=== PATIENT | female | born 1965 | race Two or more races ===

== ENCOUNTER 2024-05-02 11:05 | Emergency (ER) | payer MEDICAID, SELFPAY ==
[2024-05-02 11:41] VITALS: BP 114/76; PULSE 98; RESP 20; TEMP 37.2; O2SAT 96; BMI 49.1
--- NOTE | 2024-05-02 11:48 | XR_ITS ---
Examination: Wrist, left 3 views Technique: Wrist AP, oblique, lateral 3 views Date and time of exam: May 02, 2024 12 noon Indications: Patient fell today with injury to the wrist, wrist pain. Findings: Acute intra-articular fracture distal radial metaphysis, without significant displacement Also fracture ulnar styloid tip Impression: Acute comminuted intra-articular fracture distal radial metaphysis
--- NOTE | 2024-05-02 13:54 | EDNOTE_ITS ---
Upper Extremity Injury RME/HPI General Chief Complaint: Hand/Wrist Problems Stated Complaint: LEFT WRIST PAIN Time Seen by Provider: 05/02/24 11:14 Arrival date/time: 05/02/24 11:05 58-year-old female presents to the emergency department today complains of ground-level fall yesterday patient reports pain to the left wrist since then patient denies any other injuries Limitations: no limitations Related Data Previous Rx's ?Medication ?Instructions ?Recorded hydrocodone 5 mg-acetaminophen 325 1 tab PO BID PRN pa in #10 tabs 05/02/24 mg tablet ibuprofen 800 mg tablet 800 mg PO TID PRN pain #30 t abs 05/02/24 Allergies Allergy/AdvReac Type Severity Reaction Status Date / Time No Known Allergies Allergy Verified 05/02/24 11:08 Review of Systems Review of Systems Systems Reviewed: All systems reviewed, normal except as documented Constitutional Constitutional: Reports system reviewed and no additional complaints, except as documented, Denies fever(s) and Denies headache(s) Eyes Eyes: Reports system reviewed and no additional complaints, except as documented and Denies blurry vision ENT Ears, Nose, Mouth, and Throat: Reports system reviewed and no additional complaints, except as documented, Denies headache(s), Denies nasal congestion and Denies nasal discharge Cardiovascular Cardiovascular: Reports system reviewed and no additional complaints, except as documented, Denies chest pain and Denies dyspnea Respiratory Respiratory: Reports system reviewed and no additional complaints, except as documented, Denies chest congestion, Denies cough and Denies dyspnea Gastrointestinal Gastrointestinal: Reports system reviewed and no additional complaints, except as documented and Denies abdominal pain Musculoskeletal Musculoskeletal: Reports system reviewed and no additional complaints, except as documented, Reports arthralgias, Denies deformity, Reports joint swelling, Denies numbness, Reports stiffness and Denies tingling Integumentary/Breasts Skin/Breast: Reports system reviewed and no additional complaints, except as documented and Denies rash Neurologic Neurologic: Reports system reviewed and no additional complaints, except as documented, Reports as per HPI, Denies headache(s), Denies numbness and Denies tingling Past Medical History Social History SMOKING STATUS: Never smoker ED Exam General Limitations: Present no limitations General appearance: Present alert and in no apparent distress Head Head exam: Present atraumatic, normocephalic and normal inspection Eye Eye exam: Present normal appearance, PERRL and EOMI; Absent conjunctival injection ENT ENT exam: Present normal exam, normal oropharynx and mucous membranes moist Neck Neck exam: Present normal inspection, full ROM and trachea midline Chest Chest inspection: Present normal inspection and symmetric chest wall rise Respiratory Respiratory exam: Present normal lung sounds bilaterally Cardiovascular Cardiovascular exam: Present regular rate, normal rhythm and normal heart sounds Abdominal Exam Abdominal exam: Present soft and normal bowel sounds Extremities Exam Extremities exam: Present tenderness, normal capillary refill and joint swelling Back Exam Back exam: Present normal inspection and full ROM Neurological Exam Neurological exam: Present alert, oriented X3 and CN II-XII intact Psychiatric Psychiatric exam: Present normal affect and normal mood Skin Skin exam: Present warm, dry, intact and normal color Course Quality Measures none Orders Category Date Time Status Splint / Immobilizer STAT Care 05/02/24 13:47 Completed XR wrist comp LT min 3V Stat Exams 05/02/24 11:48 Completed HYDROcodone*/APAP 5/325 [[place] 5/325] Med 05/02/24 13:47 Discontinued 1 tab PO X1 ONE Vital Signs Vital signs: Vital Signs Temperature 98.9 F 05/02/24 11:41 Pulse Rate 98 05/02/24 11:41 Respiratory Rate 20 05/02/24 11:41 Blood Pressure 114/76 05/02/24 11:41 Pulse Oximetry (%) 96 05/02/24 11:41 Oxygen Delivery Method Room Air 05/02/24 11:41 O2 saturation 96% room air within normal Procedures -ED Splint Fabrication: Clinician Made Type: Volar Reason for Splint: Optimal Positioning and Pain Management Site condition: Pain Circulation Distal to Splint: Yes Movement Distal to Splint: Yes Senation Distal to Splint: Yes Tolerance: Tolerates Well Extremity Injury MDM Narrative MDM Narrative:: 58-year-old female presents to the emergency department today complains of ground-level fall yesterday patient reports pain to the left wrist since then patient denies any other injuries On exam patient has pain and swelling to the left wrist patient reports pain worse with movement Imaging of the left wrist obtained consistent with fracture Patient discharged home in no distress to follow-up with primary care doctor in the next 24 to 48 hours and for any worsening symptoms to return to the ER immediately Patient data External records reviewed:: [facility] previous records Clinical information provided by:: patient Social determinants that could affect healthcare access:: none Patient has the following chronic illnesses:: None How is presenting disease/condition affected by chronic disease/condition?: no chronic disease Evaluation data The following diagnostics were reviewed and interpreted by me:: radiology exam(s) Lab and/or radiology exams considered but not ordered:: Radiology obtain Interpretation Summary: Reviewed by me Medications / Prescriptions Medications or Prescriptions considered but not ordered:: Given Medication administrations:: Medication Administration History Discontinued Medications Hydrocodone Bitart/Acetaminophen (Hydrocodone/Apap 5/325 Tablet) 1 tab PO X1 ONE Stop: 05/02/24 13:48 Last Admin: 05/02/24 13:55 Dose: 1 tab Documented By: KF Given Consultations Consultation(s) initiated? (list below): No Diagnosis Upper Extremity Injury Differential Diagnosis: sprain and strain of wrist and fracture of wrist Most likely diagnosis given after review of the tests above:: Fracture of wrist Admission Indicated Admission indicated?: not indicated Admission Request Was there a request for admission?: No Disposition Plan Disposition Plan: Discharge Discharge Attestation Discharge Attestation: The patient and all family members were given an opportunity to ask questions and understood the discharge instructions. Discharge instructions specifically effects, indications for sooner follow up or return to the emergency department, and the expected course of current diagnosis. Patient condition: Stable Discharge Plan Plan Patient Disposition: HOME (Self Care) Disposition Comment: Stable Prescriptions/Referrals Prescriptions/Med Rec: New ibuprofen 800 mg tablet 800 mg PO TID PRN (Reason: pain) Qty: 30 0RF hydrocodone-acetaminophen 5-325 mg tablet 1 tab PO BID MDD 10 PRN (Reason: pain) Qty: 10 0RF Problem List Clinical Impression: Fracture of wrist Patient/Caregiver Discharge Instructions Education Materials: ED Fracture, Upper Extremity Additional Instructions: Please follow-up with primary care doctor in order get a referral to orthopedist worsening symptoms or concerns return to the ER immediately for further evaluation Print Language: Georgian Stand Alone Forms: [employer] Info., Patient Portal Info Letter PA/CONTROL PANEL OPERATOR Supervising Physician PA/MICHELLE Supervising Physician: Dr. Meza
[2024-05-02] MEDS: HYDROcodone/APAP 5/325 TABLET 1 TAB PO (13:55)
== END 2024-05-02 14:17 | disposition home or self-care (01) ==
PROVIDERS: Emergency Provider Emergency Medicine; PCP Internal Medicine
DX: S52.572A Other intraarticular fracture of lower end of left radius, initial encounter for closed fracture (principal); W18.30XA Fall on same level, unspecified, initial encounter
CPT/HCPCS: 29126; 73110; 99283; A9270

== ENCOUNTER → 2024-05-23 | Outpatient (CLI) | payer MEDICAID, SELFPAY ==
--- NOTE | 2024-05-23 13:50 | XR_ITS ---
Examination: Wrist, left 3 views Technique: Wrist AP, oblique, lateral 3 views Date and time of exam: May 23, 2024 1412 hours Comparison May 02, 2024 INDICATIONS: History wrist fracture 2 weeks ago. FINDINGS: Subacute intra-articular fracture distal radial metaphysis again noted without major displacement Ulnar styloid tip fracture also identified IMPRESSION: Stable alignment subacute intra-articular fracture distal radial metaphysis
--- NOTE | 2024-05-23 13:50 | XR_ITS ---
Examination: Hand, left 3 views Technique: Hand AP, oblique, lateral 3 views Date and time of exam: May 23, 2024 at 1412 hours INDICATIONS: Patient fell 2 weeks ago with injury to the hand, hand pain. FINDINGS: Prominent osteopenia Subacute fracture distal radial metaphysis without significant displacement Fracture ulnar styloid tip Carpal bones metacarpals and digits appear intact IMPRESSION: Subacute nondisplaced fracture distal radial metaphysis
== END | disposition home or self-care (01) ==
LOC: CDIM 13:35
PROVIDERS: PCP Nurse Practitioner Gerontology; Referring Provider Nurse Practitioner Gerontology; Visit Provider Nurse Practitioner Gerontology
DX: S52.92XA Unspecified fracture of left forearm, initial encounter for closed fracture (principal); W19.XXXA Unspecified fall, initial encounter
CPT/HCPCS: 73110; 73130

== ENCOUNTER 2024-07-28 10:00 | Outpatient (RCR) | payer MEDICAID, SELFPAY ==
--- NOTE | 2024-07-19 09:43 | PTNOTE_ITS ---
PT OP Initial Eval Patient Information Outpatient Physical Therapy Treatment Date: 07/19/24 Visit Reasons: fracture left hand Medical Diagnosis: s52.502a Treatment Dx #1: Left Hand Pain Treatment Dx #2: Left Hand Weakness Start of Care: 07/19/24 Date of Onset: Apr 2024 Smoking Status Smoking Status: Never smoker Initial Assessment Subjective: Pt is a 59 y/o female reports of left hand pain and weakness after she fracture her wrist secondary to a fall in Apr 2024. Pt's xray confirmed distal radius fracture. Pt was in a splint for ~ 6 weeks. Pt still limitation with gripping, lifting, chores, self care, cooking, cleaning, and performing recreational activities. Objective: Left Wrist AROM Flexion: 10 deg Extension: 30 deg Pronation: 90 deg Supination: 45 deg Ulnar Deviation: 20 deg Radial Deviation: 10 deg Left Wrist MMTs: grossly 3-/5 Specification Writer Strength L: 8 lbs R: 40 lbs Assessment: Pt demonstrate left wrist mobility and strength deficits s/p fracture leading to difficulty with ADLs. Pt will benefit from physical therapy to increase ROM, strength, and work on mobility. 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 Operator Goals 1) Increase left wrist AROM WNL in 6 wks to be able to perform chores 2) Decrease wrist pain to 2/10 in 6 wks to be able to perform recreational activities 3) Increase left wrist MMTs grossly to 4/5 in 6 wks to be able to perform self care activities 4) Increase left factory laborer strength to 30 lbs in 6 wks to be able to perform gripping activities 5) Indep with HEP Treatment Plan 1) Manual Therapy 2) Therapeutic Activities 3) Therapeutic Exercises 4) Modalities (ice, heat) Frequency and Duration: 2 x wk for 6 wks Certification Dates: 07/19/24 to 10/19/24 Procedure Charges OP PT Eval Mod Complex 30 minutes: Yes
--- NOTE | 2024-07-26 13:08 | PT.ODAYNRPT ---
PT Outpatient Daily Note OP Daily Note Outpatient Physical Therapy Treatment Date: 07/26/24 Visit Reasons: fracture left hand Subjective: Pt c/o stiffness and weakness. Objective: PLease see flow sheet for there x lsit. Assessment: Pt encouraged to wean off wrist brace and work on light ROM of wrist and digits for HEP, pt agreed. Plan: Continue with POC. Length of Time (minutes) of Treatment: 30 Minutes Procedure Charges Therapeutic Exercise 30 minutes: Yes
--- NOTE | 2024-07-28 10:49 | PT.ODAYNRPT ---
PT Outpatient Daily Note OP Daily Note Outpatient Physical Therapy Treatment Date: 07/28/24 Visit Reasons: fracture left hand Subjective: Pt reports she is trying to wean off the wrist brace. Objective: Please see flow sheet for ther ex list. Assessment: Pt educated on wrist flexion and extension stretch, encouraged to perform for HEP pt agreed. Plan: Assess response to HEP. Length of Time (minutes) of Treatment: 30 Minutes Procedure Charges Therapeutic Exercise 30 minutes: Yes
== END 2024-08-06 23:59 | disposition home or self-care (01) ==
LOC: CPTX 10:00
PROVIDERS: PCP Surgery; Referring Provider Surgery; Visit Provider Surgery
DX: M79.642 Pain in left hand (principal); R53.1 Weakness; S52.502D Unspecified fracture of the lower end of left radius, subsequent encounter for closed fracture with routine healing; W19.XXXD Unspecified fall, subsequent encounter
CPT/HCPCS: 97110; 97162

== ENCOUNTER 2024-09-02 11:00 | Outpatient (RCR) | payer MEDICAID, SELFPAY ==
--- NOTE | 2024-08-11 09:14 | PTNOTE_ITS ---
PT Outpatient Daily Note OP Daily Note Outpatient Physical Therapy Treatment Date: 08/11/24 Visit Reasons: LEFT HAND FRACTURE Subjective: Pt's hand and wrist still hurts. Pt mentioned she can move better lately despite the continued pain. Objective: Please see flow chart for list of ther ex performed Assessment: progressing with wrist AROM. 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
--- NOTE | 2024-08-16 16:19 | PT.ODAYNRPT ---
PT Outpatient Daily Note OP Daily Note Outpatient Physical Therapy Treatment Date: 08/16/24 Visit Reasons: LEFT HAND FRACTURE Subjective: Pt reports L hand is doing a little better, feels making a fist has improved. Objective: Please see flow sheet for ther ex list. Assessment: Interventions given with short rest breaks in between reps pt has poor supervisor finishing room strength and endurance. Plan: Continue with pOC. Length of Time (minutes) of Treatment: 30 Minutes Procedure Charges Therapeutic Exercise 30 minutes: Yes
--- NOTE | 2024-08-23 11:20 | PT.ODAYNRPT ---
PT Outpatient Daily Note OP Daily Note Outpatient Physical Therapy Treatment Date: 08/23/24 Visit Reasons: LEFT HAND FRACTURE Subjective: Pt's hand is much better. Pt still notice hypersensitivity around the scar area. Objective: Please see flow chart for list of ther ex performed Assessment: progressing with hand resistance exercise. Pt was unable to properly perform red digiflex exercise due to resistance and modified back to the yellow one with improved form. Plan: Continue with PT Length of Time (minutes) of Treatment: 30 Minutes Procedure Charges Therapeutic Exercise 30 minutes: Yes
--- NOTE | 2024-09-02 13:26 | PTNOTE_ITS ---
PT Outpatient Daily Note OP Daily Note Outpatient Physical Therapy Treatment Date: 09/02/24 Visit Reasons: LEFT HAND FRACTURE Subjective: Pt notices ball thread machine tender strength is improving but continues to have occasional pain. Objective: Please see flow sheet for ther ex list. GEOFFREY L 40 lbs, R 42 lbs. Assessment: Pt demonstrates imporved ball thread machine tender strenght indicated by above measurements. Plan: Continue progressing per post op protocol. Length of Time (minutes) of Treatment: 30 Minutes Procedure Charges Therapeutic Exercise 30 minutes: Yes
== END 2024-09-05 23:59 | disposition home or self-care (01) ==
LOC: CPTX 11:00
PROVIDERS: PCP Surgery; Referring Provider Surgery; Visit Provider Surgery
DX: M79.642 Pain in left hand (principal); R53.1 Weakness; S52.502D Unspecified fracture of the lower end of left radius, subsequent encounter for closed fracture with routine healing; W19.XXXD Unspecified fall, subsequent encounter
CPT/HCPCS: 97110

== ENCOUNTER 2024-09-29 11:30 | Outpatient (RCR) | payer MEDICAID, SELFPAY ==
--- NOTE | 2024-09-07 11:16 | PTNOTE_ITS ---
PT Outpatient Daily Note OP Daily Note Outpatient Physical Therapy Treatment Date: 09/07/24 Visit Reasons: Left hand FX Subjective: Pt reports hand is sore today. Objective: Please see flow sheet for there x list. Assessment: Progression of interventions for functional wrist and diagnostic tech strength completed with good tolerance. Plan: Continue with POC. Length of Time (minutes) of Treatment: 30 Minutes Procedure Charges Therapeutic Exercise 30 minutes: Yes
--- NOTE | 2024-09-13 11:40 | PT.ODAYNRPT ---
PT Outpatient Daily Note OP Daily Note Outpatient Physical Therapy Treatment Date: 09/13/24 Visit Reasons: Left hand FX Subjective: Pt reports L hand is feeling better, notices advertising account executive has improved but still has some pain with rotating forearm. Objective: Please see flow sheet for ther ex list. L Card Checker strength 34lbs R advertising account executive strength 50 lbs. Assessment: Pt advertising account executive strength progressing as indicated in above measurements. Plan: Continue with pOC. Length of Time (minutes) of Treatment: 30 Minutes Procedure Charges Therapeutic Exercise 30 minutes: Yes
--- NOTE | 2024-09-20 11:36 | PT.ODAYNRPT ---
PT Outpatient Daily Note OP Daily Note Outpatient Physical Therapy Treatment Date: 09/20/24 Visit Reasons: Left hand FX Subjective: Pt reports L hand is doing better, notices progress with strength. Objective: Please see flow sheet for ther ex list. Assessment: Progressing functional strengthening, pt completed with no complaints. Plan: Continue with pOC. Length of Time (minutes) of Treatment: 30 Minutes Procedure Charges Therapeutic Exercise 30 minutes: Yes
--- NOTE | 2024-09-26 11:54 | PTNOTE_ITS ---
PT OP Progress/Discharge Note Date of Service: 09/26/24 Progress Note/DC Note Progress Note/Discharge Note: Progress Note Patient Information Visit Reasons: Left hand FX Medical Diagnosis: s52.502a Treatment Dx #1: Left Hand Pain Treatment Dx #2: Left Hand Weakness Service Continue Service or Discharge: Continue Service Certification Date Certification Dates: 09/26/24 to 12/27/24 Status Subjective: Pt's hand and ROM is better. Pt still has intermittent pain at the location of the fracture site. Pt has been able to start light chores, cook, clean, and perform ADLs with less limitation. Pt will like to continue physical therapy to increase strength to be able to perform functional tasks with minimal difficulty. Objective: Left Wrist AROM: all motions are WNL Left Wrist MMTs: grossly 3+/5 Collections Assistant Strength L: 35 lbs R: 59 lbs Assessment: Pt is improving with left wrist mobility and strength allowing her to resume ADLs, chores, and gripping activities with less limitation. Pt still exhibit geophysical laboratory supervisor strength deficits from left to right and will continue to benefit from physical therapy to work on strength; thank you for your referrals. Plan: Continue with PT and POC and add 6 sessions (2 x wk for 3 wks) Procedure Charges Therapeutic Exercise 30 minutes: Yes
--- NOTE | 2024-09-29 11:21 | PT.ODAYNRPT ---
PT Outpatient Daily Note OP Daily Note Outpatient Physical Therapy Treatment Date: 09/29/24 Visit Reasons: Left hand FX Subjective: Pt's hand is better. Pt has been able to grab a cup of water with less limitation. Objective: Please see flow chart for list of ther ex performed Assessment: continue to slowly progress with resistance exercises. Pt instructed to continue HEP at home until we received further auth. Plan: Continue with PT and pending MD's further approval for additional physical therapy sessions Length of Time (minutes) of Treatment: 30 Minutes Procedure Charges Therapeutic Exercise 30 minutes: Yes
== END 2024-10-06 23:59 | disposition home or self-care (01) ==
LOC: CPTX 11:30
PROVIDERS: PCP Surgery; Referring Provider Surgery; Visit Provider Surgery
DX: M79.642 Pain in left hand (principal); R53.1 Weakness; S52.502D Unspecified fracture of the lower end of left radius, subsequent encounter for closed fracture with routine healing; W19.XXXD Unspecified fall, subsequent encounter
CPT/HCPCS: 97110